=== PATIENT | male | born 1990 | race Caucasian/White ===

== ENCOUNTER 2023-03-24 21:34 | Emergency (ER) | payer SELFPAY ==
[~2023-03-24] VITALS: Ht 188 cm; Wt 68.0 kg
[2023-03-24] MEDS ORDERED: ALBUTEROL FS 2.5 MG/3 ML VIAL.NEB NEB ONE (22:00)
[2023-03-24] MEDS ORDERED: predniSONE 20 MG TABLET PO ONE (22:00)
[2023-03-24] MEDS ORDERED: IPRATROPIUM NEB FS 0.5 MG/2.5 ML AMPUL.NEB NEB ONE (22:00)
[2023-03-24] MEDS ORDERED: ALBUTEROL FS 2.5 MG/3 ML VIAL.NEB ONE (22:12)
[2023-03-24] MEDS ORDERED: IPRATROPIUM NEB FS 0.5 MG/2.5 ML AMPUL.NEB ONE (22:12)
[2023-03-24] MEDS ORDERED: predniSONE 20 MG TABLET ONE (22:16)
[2023-03-24 22:19] VITALS: O2SAT 100
[2023-03-24 23:19] VITALS: O2SAT 100
[2023-03-24] MEDS ORDERED: ALBU18HF2 INH (23:27)
[2023-03-24] MEDS ORDERED: PRED20TA PO (23:27)
[2023-03-24 23:40] VITALS: BP 134/96; TEMP 98.1; O2SAT 99
== END 2023-03-24 23:41 | disposition home or self-care (01) ==
LOC: ER 21:36
DX: J45.901 Unspecified asthma with (acute) exacerbation (principal)
CPT/HCPCS: 99285; 71045; 93005; 94799; 94644; J7512